=== PATIENT | female | born 1960 | race Asian ===

== ENCOUNTER 2017-03-24 11:23 | Emergency (ER) | payer BC ==
[2017-03-24 11:38] VITALS: BP 163/92; PULSE 100; TEMP 98.1; BMI 26.5
--- NOTE | 2017-03-24 12:09 | PDOC ---
History of Present Illness - General Chief Complaint: Injury Stated Complaint: FALL/ LT WRIST PAIN Time Seen by Provider: 03/24/17 12:07 History Source: Patient Exam Limitations: No Limitations - History of Present Illness Initial Comments: 03/24/17 12:15 Patient slipped on the ice falling onto extended left hand, has deformity and pain to her wrist. "I think I broke my wrist". No other injury Occurred: reports: just prior to arrival Severity: reports: mild, moderate Pain Location: reports: upper extremity (left forearm and wrist) Loss of Consciousness: no loss of consciousness Associated Symptoms (Fall): denies symptoms Past History - Travel Traveled outside of the country in the last 30 days: No Close contact w/someone who was outside of country & ill: No - Past Medical History Home Medications: Ambulatory Orders Oxycodone HCl/Acetaminophen [Percocet 5-325 mg Tablet] 1 - 2 tab PO Q6H #10 tablet MDD 8 03/24/17 COPD: No Seizures: Yes - Suicide/Smoking/Psychosocial Hx Smoking History: Never smoked Hx Alcohol Use: Yes (SOCIAL) Drug/Substance Use Hx: No Substance Use Type: None Review of Systems - Review of Systems Able to Perform ROS?: Yes Is the patient limited Bangl[place]hi proficient: Yes Constitutional: Yes: Symptoms Reported, See HPI. No: Loss of Appetite HEENTM: No: Symptoms Reported Respiratory: No: Symptoms reported Musculoskeletal: Yes: Symptoms Reported, See HPI, Joint Pain, Joint Swelling ( left wrist) All Other Systems: Reviewed and Negative *Physical Exam - Vital Signs Last Vital Signs Temp Pulse Resp BP Pulse Ox 98.1 F 100 H 20 163/92 95 03/24/17 11:34 03/24/17 11:34 03/24/17 11:34 03/24/17 11:34 03/24/17 11:34 - Physical Exam General Appearance: Yes: Nourished, Appropriately Dressed, Apparent Distress, Mild Distress HEENT: positive: PAUL[place], Normal ENT Inspection, TMs Normal, Pharynx Normal Neck: positive: Supple. negative: Tender Musculoskeletal: positive: Decreased Range of Motion. negative: Normal Inspection Extremity: positive: Swelling. negative: Normal Capillary Refill, Normal Inspection (has deformity and swelling at distal radius and ulna, and able to flex and extend at wrist with some mild snuffbox tenderness. Patient has neurovascular intact to fingers, no elbow injury), Normal Range of Motion Integumentary: positive: Normal Color Neurologic: positive: drier feeder II-XII NML intact, Fully Oriented, Alert, Normal Mood/ Affect, Normal Response, Motor Strength /5 Procedures - Splinting Splint Location: Left: Wrist Hand-Made Type: orthoglass Progress Note - Progress Note Progress Note: left colles fracture, splinted and will follow up with OrthO= unable to transcribe prescription to, written prescription for #15 Percocet *DC/Admit/Observation/Transfer Diagnosis at time of Disposition: Wrist fracture, left Qualifiers: Encounter type: initial encounter Fracture type: closed Qualified Code(s): S62.102A - Fracture of unspecified carpal bone, left wrist, initial encounter for closed fracture - Discharge Dispostion Disposition: HOME Condition at time of disposition: Stable Admit: No - Referrals Referrals: Javier Burdick MD [Staff Physician] - - Patient Instructions Printed Discharge Instructions: DI for Wrist Fracture Additional Instructions: Rest, ice to area on and off for 15 minutes 4-6 times a day Avoid heavy lifting or exercise until pain and swelling is resolved or until further directed Keep area highly elevated to reduce swelling Use splints/Rolando wrap as directed Followup with orthopedist in one to 2 days if not improving, if significantly improved may wait one week for followup with orthopedist May use ibuprofen 2-200 mg tablets every 6 hours as needed for pain - Post Discharge Activity Forms/Work/School Notes: Back to Work
[2017-03-24] MEDS ORDERED: IBUPROFEN 600 MG TABLET (FP) PO ONE ×2 (12:16→12:18)
== END 2017-03-24 13:19 | disposition home or self-care (01) ==
LOC: JERFT 11:23
PROC: 2W3DX1Z Immobilization of Left Lower Arm using Splint (ICD-10-PCS; principal; 2017-03-24)
DX: S52.592A Other fractures of lower end of left radius, initial encounter for closed fracture (principal); W00.2XXA Other fall from one level to another due to ice and snow, initial encounter; Y93.89 Activity, other specified; Y92.89 Other specified places as the place of occurrence of the external cause; Y99.8 Other external cause status
CPT/HCPCS: 73110-TC-LT; 99281-25